=== PATIENT | female | born 1990 | race African-American/Black ===

== ENCOUNTER 2022-01-10 14:03 | Emergency (ER) | payer OTHER ==
[~2022-01-10 14:03] MED LIST: BACTRIM DS TAB1 EACH PO; FLOMAX0.4 MG PO; KEFLEX250 MG PO; OXY-IR 5MG5 MG PO; VOLTAREN **OUT75 MG PO
[2022-01-10] MEDS ORDERED: NAPROXEN500 MG PO (16:21)
[2022-01-10] MEDS ORDERED: BACLOFEN 10MG T10 MG PO (16:21)
== END 2022-01-10 16:40 | disposition home or self-care (01) ==
LOC: FER 14:03
DX: M54.2 Cervicalgia (principal); R51.9 Headache, unspecified; F17.210 Nicotine dependence, cigarettes, uncomplicated; V49.40XA Driver injured in collision with unspecified motor vehicles in traffic accident, initial encounter
CPT/HCPCS: 72125; 96372; J1100; J1885